=== PATIENT | male | born 1945 | race Caucasian/White ===

== ENCOUNTER 2019-05-22 10:35 | Emergency (ER) | payer MEDICARE ==
--- OUTSIDE RECORDS SUMMARY | 2019-05-22 10:43 | XMS REPORT | Continuity of Care Document ---
:1945 External Reference #:[id number] Author Name Skyler Rodriguez M.D. (transmitted by agent of provider Luis Levine) Address [address], [place] [address] Problems Active Problems Provider Date Essential tremor Ness Harrington M.D. Onset: 01/28/2015 Arthralgia of the pelvic region and thigh Onset: 11/22/2015 Acute maxillary sinusitis Onset: 11/22/2015 Hypothyroidism Onset: 11/22/2015 Backache Onset: 11/22/2015 Spasm Onset: 11/22/2015 Essential hypertension Onset: 05/20/2012 Hyperlipidemia Onset: 05/20/2012 Allergic rhinitis Onset: 09/25/2011 Benign essential hypertension Onset: 09/25/2011 Otolith disease Onset: 09/25/2011 Social History Type Date Description Comments Sex Unknown Tobacco Use Start: Unknown Never Smoked Cigarettes Smoking Status Reviewed: 05/21/19 Never Smoked Cigarettes ETOH Use Drinks 2 Alcoholic Beverages Per Week Tobacco Use Start: Unknown Patient has never smoked Recreational Drug Use Denies Drug Use Exercise Type/Frequency Exercises regularly Tattoo/Piercing Negative For Tattoo Allergies, Adverse Reactions, Alerts Description No Known Drug Allergies Medications Active Medications SIG Qnty Indications Ordering Date Provider Carbidopa-Levodopa 1 three times a 270tabs G20 Skyler Quach 12/12/2017 day after meals Prosper Rodriguez 25-100mg Tablets Klonopin 1 by mouth every 30tabs G25.0 Skyler Quach 08/05/2017 0.5mg Tablets night at bedtime Prosper Rodriguez mdd 1 Levothyroxine Sodium 1 by mouth every 30tabs Unknown day 75mcg Tablets Propranolol HCL ER 1 by mouth every 30caps Landon 120mg day MD Colin Caps ER 24HR Aspir-Low 1 by mouth every Unknown 81mg Tablets DR day at night Lisinopril-Hydrochloro 1 tab by mouth 30tabs Landon thiazide daily MD Colin 10-12.5mg Tablets Immunizations CPT Code Status Date Vaccine Lot # [id number] Given 04/17/2018 Fluzone High Dose 50425 Given 05/31/2017 Fluzone High Dose 35267 Given 05/31/2016 Pneumococcal Conjugate Vaccine 13 Valent For Intramuscular Use 03928 Given 05/30/2016 Fluzone High Dose 09567 Given 05/25/2015 Fluzone High Dose 52408 Given 08/25/2014 Zoster (Zostavax) 31310 Given 05/24/2014 Fluzone High Dose 24626 Given 05/22/2013 Tdap - Tetanus/Diptheria/Acellular Pertussis 78435 Given 05/07/2013 Fluzone High Dose 21695 Given 05/20/2012 Tdap - Tetanus/Diptheria/Acellular Pertussis 83597 Given 05/20/2012 Fluzone High Dose 30616 Given 06/03/2009 Pneumonia Vaccine 45242 Given 06/03/2009 Administration Swine Flu Shot 02771 Given 04/05/1999 Tetanus And Diptheria (Td) For Adult Use Preservative Free Vital Signs Date Vital Result Comment 05/21/2019 8:51am Height 70 inches 5'10" Weight 178.00 lb per patient, has lost weight d/t summer activity Heart Rate 70 /min BP Systolic Sitting 118 mmHg BP Diastolic Sitting 71 mmHg Respiratory Rate 18 /min Body Temperature 97.8 F Pain Level 0 O2 % BldC Oximetry 97 % BMI (Body Mass Index) 25.5 kg/m2 12/01/2018 10:15am Weight 194.00 lb BP Systolic 110 mmHg BP Diastolic 68 mmHg Results Description No Information Available Procedures Date Code Description Status 07/24/2017 184939908 Diabetic Retinal Eye Exam Completed 08/24/2016 [id number] Colonoscopy Completed Medical Devices Description No Information Available Encounters Type Date Location Provider Dx Diagnosis Office Visit 12/01/2018 [facility]andon I10 Essential (primary) 9:30a MD Colin hypertension E03.9 Hypothyroidism, unspecified G25.0 Essential tremor Assessments Date Code Description Provider 05/21/2019 G20 Parkinson's disease Skyler Rodriguez M.D. 12/01/2018 I10 Essential (primary) hypertension Landon Shaw MD 12/01/2018 E03.9 Hypothyroidism, unspecified Landon Shaw MD 12/01/2018 G25.0 Essential tremor Landon Shaw MD Plan of Treatment Future Appointment(s):12/10/2019 8:45 am - Skyler Rodriguez M.D. at [facility]06/03/2019 8:00 am - Landon Shaw MD at [facility]05/21/2019 - Skyler Rodriguez M.D.G20 Parkinson's diseaseFollow up:6 months Functional Status Description No Information Available Mental Status Description No Information Available Referrals Description No Information Available
[2019-05-22 10:53] VITALS: BP 127/72
[2019-05-22] MEDS ORDERED: DOXYcycline CAP(*) 100 MG PO ONE (10:59)
--- NOTE | 2019-05-22 11:10 | ED ---
Skin Complaint - HPI Summary HPI Summary: 74 yr old with the complaint of tick bites times two. One attached on right shoulder the other on the inside left upper arm. The ticks are not engorged. he believes he acquired them during a walk on afternoon. He has no other complaints. - History of Current Complaint Chief Complaint: UCSkin Time Seen by Provider: 05/22/19 10:49 Stated Complaint: TICK BITE Pain Intensity: 0 - Allergy/Home Medications Allergies/Adverse Reactions: Allergies Allergy/AdvReac Type Severity Reaction Status Date / Time No Known Allergies Allergy Verified 05/22/19 10:45 Home Medications: Home Medications Aspirin EC TAB* [Ecotrin EC Low Dose 81 MG*] 81 mg PO DAILY 05/22/19 [History Confirmed 05/22/19] Carbidopa/Levodopa ER 25/100 [Carbidopa-Levo ER 25-100 Tab] 1 tab PO TID [History Confirmed 05/22/19] Levothyroxine TAB* [Synthroid TAB*] 25 mcg PO DAILY 05/22/19 [History Confirmed 05/22/19] Lisinopril TAB* [Prinivil TAB*] 5 mg PO DAILY 05/22/19 [History Confirmed ] Propranolol TAB* [Inderal TAB*] 10 mg PO DAILY 05/22/19 [History Confirmed 05/22] clonazePAM TAB(*) [KlonoPIN TAB(*)] 1 mg PO BEDTIME PRN 05/22/19 [History Confirmed 05/22/19] PMH/Surg Hx/FS Hx/Imm Hx Endocrine/Hematology History: Denies: Hx Diabetes Cardiovascular History: Reports: Hx Hypertension Denies: Hx Pacemaker/ICD History: Denies: Hx Renal Disease Sensory History: Denies: Hx Hearing Aid Psychiatric History: Denies: Hx Panic Disorder - Surgical History Surgery Procedure, Year, and Place: TONSILS. HERNIA SURGERY 2014 Infectious Disease History: No Infectious Disease History: Denies: Traveled Outside the [place] in Last 30 Days - Family History Known Family History: Positive: None - Social History Occupation: Retired Alcohol Use: Occasionally Substance Use Type: Reports: None Smoking Status (MU): Never Smoked Tobacco Review of Systems Constitutional: Negative Positive: Other - tick bites All Other Systems Reviewed And Are Negative: Yes Physical Exam Triage Information Reviewed: Yes Vital Signs On Initial Exam: Initial Vitals Temp Pulse Resp BP Pulse Ox 97.7 F 68 15 127/72 99 05/22/19 10:47 05/22/19 10:47 05/22/19 10:47 05/22/19 10:47 05/22/19 10:47 Vital Signs Reviewed: Yes Appearance: Positive: Well-Appearing Skin: Positive: Other - two attached ticks; one on the right shoulder, the other medial upper left arm. No engorgement. No bulls eye or erethema migrans rash. Head/Face: Positive: Normal Head/Face Inspection Eyes: Positive: EOMI ENT: Positive: Normal ENT inspection Neck: Positive: Nontender Respiratory/Lung Sounds: Positive: Clear to Auscultation, Breath Sounds Present Cardiovascular: Positive: RRR. Negative: Murmur Abdomen Description: Negative: Distended Musculoskeletal: Positive: Strength/ROM Intact Neurological: Positive: Sensory/Motor Intact, Alert, Oriented to Person Place, Time, CN Intact II-III Psychiatric: Positive: Normal Procedures - Procedure Summary Procedure Summary: Two ticks removed; one from the right shoulder, the other from the left upper medial arm. A right angle hook was used, and successfully removed by me. No cellulitis. Diagnostics - Vital Signs Vital Signs Temp Pulse Resp BP Pulse Ox 05/22/19 10:47 97.7 F 68 15 127/72 99 - Laboratory Lab Statement: Any lab studies that have been ordered have been reviewed, and results considered in the medical decision making process. Course/Dx - Course Course Of Treatment: 74 yr old with two tick bites. Ticks removed, and doxy prophylaxis given. - Diagnoses Provider Diagnoses: Tick bites Discharge ED - Sign-Out/Discharge Documenting (check all that apply): Patient Departure All imaging exams completed and their final reports reviewed: No Studies - Discharge Plan Condition: Good Disposition: HOME Patient Education Materials: Tick Bite (ED) Referrals: Landon Shaw MD [Primary Care Provider] - 2 Days - Billing Disposition and Condition Condition: GOOD Disposition: Home
== END 2019-05-22 11:13 | disposition home or self-care (01) ==
LOC: UCCORT 10:35
DX: S40.261A Insect bite (nonvenomous) of right shoulder, initial encounter (principal); S40.862A Insect bite (nonvenomous) of left upper arm, initial encounter; I10 Essential (primary) hypertension; W57.XXXA Bitten or stung by nonvenomous insect and other nonvenomous arthropods, initial encounter; Y92.9 Unspecified place or not applicable
CPT/HCPCS: 99212; A9270-GY; G0463

== ENCOUNTER 2019-08-22 09:28 | Emergency (ER) | payer MEDICARE ==
--- OUTSIDE RECORDS SUMMARY | 2019-08-22 10:08 | XMS REPORT | Continuity of Care Document ---
:1945 External Reference #:[id number] Author Name Landon Shaw MD (transmitted by agent of provider Marine Bangura) Address [address] [place] [address] Problems Active Problems Provider Date Essential tremor [...] Unknown Never Smoked Cigarettes Smoking Status Reviewed: 06/25/19 Never Smoked Cigarettes ETOH Use Drinks 2 Alcoholic Beverages Per Week Tobacco Use Start: Unknown Patient has never smoked Recreational Drug Use Denies Drug Use Exercise Type/Frequency Exercises regularly Tattoo/Piercing Negative For Tattoo Allergies, Adverse Reactions, Alerts Description No Known Drug Allergies Medications Active Medications SIG Qnty Indications Ordering Date Provider Colchicine take 2 now, 1 an 60caps M10.071 Landon 06/25/2019 0.6mg Capsules hour later then MD Colin 1 twice a day Lisinopril 1 by mouth every 90tabs I10 Landon 06/03/2019 10mg Tablets day MD Colin Carbidopa-Levodopa 1 three times a 270tabs G20 Skyler Quach 12/12/2017 day after meals Prosper Rodriguez 25-100mg Tablets Klonopin 1 by mouth every 30tabs G25.0 Landon 08/05/2017 0.5mg Tablets night at bedtime MD Colin mdd 1 Levothyroxine Sodium 1 by mouth every 90tabs Landon day MD Colin 75mcg Tablets Propranolol HCL ER 1 by mouth every 90caps Landon 120mg day MD Colin Caps ER 24HR Aspir-Low 1 by mouth every Unknown 81mg Tablets DR day at night Immunizations CPT Code Status Date Vaccine Lot # [id number] Given 04/17/2018 Fluzone High Dose 80061 Given 05/31/2017 Fluzone High Dose 54130 Given 05/31/2016 Pneumococcal Conjugate Vaccine 13 Valent For Intramuscular Use 62463 Given 05/30/2016 Fluzone High Dose 77476 Given 05/25/2015 Fluzone High Dose 39071 Given 08/25/2014 Zoster (Zostavax) 06843 Given 05/24/2014 Fluzone High Dose 99781 Given 05/22/2013 Tdap - Tetanus/Diptheria/Acellular Pertussis 29511 Given 05/07/2013 Fluzone High Dose 95806 Given 05/20/2012 Tdap - Tetanus/Diptheria/Acellular Pertussis 58881 Given 05/20/2012 Fluzone High Dose 99814 Given 06/03/2009 Pneumonia Vaccine 41465 Given 06/03/2009 Administration Swine Flu Shot 03532 Given 04/05/1999 Tetanus And Diptheria (Td) For Adult Use Preservative Free Vital Signs Date Vital Result Comment 06/25/2019 11:28am Weight 185.00 lb BP Systolic 128 mmHg BP Diastolic 82 mmHg 06/03/2019 7:51am Weight 185.00 lb BP Systolic 122 mmHg BP Diastolic 80 mmHg Results Description No Information Available Procedures Date Code Description Status 07/24/2017 304819997 Diabetic Retinal Eye Exam Completed 08/24/2016 [id number] Colonoscopy Completed Medical Devices Description No Information Available Encounters Type Date Location Provider Dx Diagnosis Office Visit 06/03/2019 [facility] Landon I10 Essential (primary) 8:00a MD Colin hypertension E03.9 Hypothyroidism, unspecified F41.9 Anxiety disorder, unspecified S40.862D Insect bite (nonvenomous) of left upper arm, subs encntr Office Visit 05/21/2019 [facility] Skyler S. G20 Parkinson's 8:45a [facility] Prosper Rodriguez disease [facility] Assessments Date Code Description Provider 06/25/2019 M10.071 Idiopathic gout, right ankle and foot Landon Shaw MD 06/03/2019 I10 Essential (primary) hypertension Landon Shaw MD 06/03/2019 E03.9 Hypothyroidism, unspecified Landon Shaw MD 06/03/2019 F41.9 Anxiety disorder, unspecified Landon Shaw MD 06/03/2019 S40.862D Insect bite (nonvenomous) of left upper Landon Shaw MD arm, subsequent encounter 05/21/2019 G20 Parkinson's disease Skyler Rodriguez M.D. Plan of Treatment Future Appointment(s):09/03/2019 9:00 am - Landon Shaw MD at [facility]12/10/2019 8:45 am - Skyler Rodriguez M.D. at [facility]05/21/2019 - Skyler Rodriguez M.D.G20 Parkinson's diseaseFollow up:6 months Functional Status Description No Information Available Mental Status Description No Information Available Referrals Description No Information Available
[2019-08-22 10:31] VITALS: BP 141/80
--- NOTE | 2019-08-22 11:13 | UC ---
Lower Extremity/Ankle HPI - HPI Summary HPI Summary: Patient is 74 year old female, who present today to the urgent care with right big toe pain for past 2 days. no trauma. Right big toe gout and symptoms started 2 days ago. Pt states he had a flare about 06/21/19, and at that time it was deemed that it was secondary to high protein diet. Pt states he was allupurinol 100mg and not cholchicine d/t cost for the past month. His primary care doctor is retiring and he is not sure about his follow-up. He is able to walk but it is painful. - History of Current Complaint Chief Complaint: UCGeneralIllness Stated Complaint: GOUT Time Seen by Provider: 08/22/19 10:55 Hx Obtained From: Patient Pain Intensity: 5 - Allergies/Home Medications Allergies/Adverse Reactions: Allergies Allergy/AdvReac Type Severity Reaction Status Date / Time No Known Allergies Allergy Verified 08/22/19 10:25 PMH/Surg Hx/FS Hx/Imm Hx - Additional Past Medical History Additional PMH: Past Medical History : Hypertension, gout and hypothyroidism, Parkinson's Past Surgical History: Tonsillectomy, hernia surgery in 2013 Family History : non contributory Social History : Occasional alcohol, non smoker, no drug use. Previously Healthy: Yes - Surgical History Surgical History: Yes Surgery Procedure, Year, and Place: TONSILS. HERNIA SURGERY 2013 - Family History Known Family History: Positive: None, Non-Contributory - Social History Alcohol Use: Occasionally Substance Use Type: None Smoking Status (MU): Never Smoked Tobacco Review of Systems All Other Systems Reviewed And Are Negative: Yes Constitutional: Positive: Negative Skin: Positive: Negative Eyes: Positive: Negative ENT: Positive: Negative Respiratory: Positive: Negative Cardiovascular: Positive: Negative Gastrointestinal: Positive: Negative Genitourinary: Positive: Negative Neurovascular: Positive: Negative Musculoskeletal: Positive: Arthralgia - Right big toe, Decreased ROM, Edema Neurological: Positive: Negative Psychological: Positive: Negative Is Patient Immunocompromised?: No Physical Exam - Summary Physical Exam Summary: Vital Signs Reviewed: Yes A+Ox3, no distress Eyes: Conjunctiva Clear ENT: Hearing grossly normal neck: supple Respiratory: Positive: No respiratory distress, No accessory muscle use Cardiovascular: skin color reflect adequate perfusion Neurological: Positive: Alert, ambulatory without difficulty Psychological: Positive: Normal Response To Family Skin: Positive: no rash, no ecchymosis Right foot: Swelling and redness and tenderness at the right first MTP joint. No drainage is noted. Triage Information Reviewed: Yes Vital Signs: Initial Vital Signs Temp 98 F 08/22/19 10:26 Pulse 56 08/22/19 10:26 Resp 14 08/22/19 10:26 BP 141/80 08/22/19 10:26 Pulse Ox 100 08/22/19 10:26 Vital Signs Reviewed: Yes Lower Extremity Course/Dx - Course Course Of Treatment: Gout flare but unsure of the cause as he did not change his diet and did not take any alcohol. Treatment with prednisone and indomethacin for now. Since his primary care doctor is retiring, I advised him to follow up with rheumatology - Differential Dx/Diagnosis Provider Diagnosis: Gout flare Discharge ED - Sign-Out/Discharge Documenting (check all that apply): Patient Departure All imaging exams completed and their final reports reviewed: No Studies - Discharge Plan Condition: Stable Disposition: HOME Prescriptions: Indomethacin CAP* [Indocin CAP*] 50 mg PO TID PRN 3 Days #10 cap PRN Reason: Pain - Severe predniSONE 20 mg TAB [Deltasone 20 MG TAB*] 60 mg PO DAILY 5 Days #15 tab Patient Education Materials: Low Purine Diet (ED), Gout (ED) Referrals: Landon Crooks MD [Medical Doctor] - As Soon As Possible Landon Shaw MD [Primary Care Provider] - 1 Week Additional Instructions: Please start taking the medication as prescribed to the pharmacy . Follow up with your primary care doctor in 1 week. Please follow up with rheumatology for the consult . Patients blood pressure slightly high in Urgent care today , plan follow up with PCP for better control within 4 weeks Return to Urgent care / ER if symptoms get worse. - Billing Disposition and Condition Condition: STABLE Disposition: Home
== END 2019-08-22 11:34 | disposition home or self-care (01) ==
LOC: UCCORT 09:28
DX: M10.9 Gout, unspecified (principal); I10 Essential (primary) hypertension; G20 Parkinson's disease
CPT/HCPCS: 99212; G0463